=== PATIENT | male | born 1950 | race Caucasian/White ===

== ENCOUNTER 2017-04-10 13:22 | Inpatient (IN) | payer MEDICARE ==
[~2017-04-10] VITALS: Ht 182.9 cm; Wt 101.8 kg
[2017-04-10 13:22] VITALS: BP 117/62
[2017-04-10 13:45] LABS: HEMOGLOBIN 13.8 g/dL (14.1-18.0); LYMPH # 0.5 K/mm3 (0.7-4.5); LYMPH % 14.7 % (10-50)
[2017-04-10] MEDS ORDERED: INSULIN GL100 UNITS/ SC (14:07)
[2017-04-10] MEDS ORDERED: Novolog100 U/ML SC (14:08)
[2017-04-10] MEDS ORDERED: LIPITOR80 MG PO (14:10)
[2017-04-10] MEDS ORDERED: AMLO5TAB PO (14:11)
[2017-04-10] MEDS ORDERED: FAMOTIDINE 20MG20 MG PO (14:11)
[2017-04-10] MEDS ORDERED: METOPROLOL50 MG PO (14:12)
[2017-04-10] MEDS ORDERED: DEXAMETHASONE 4M4 MG PO (14:12)
[2017-04-10] MEDS ORDERED: SENEXON-S1 TAB PO (14:13)
[2017-04-10] MEDS ORDERED: FOLIC ACID 1MG T1 MG PO (14:13)
[2017-04-10] MEDS ORDERED: AUGMENTIN 875-1 EACH PO (14:13)
[2017-04-10] MEDS ORDERED: CHLORPROMAZINE25 M1 PO (14:14)
--- NOTE | 2017-04-10 14:21 | Emergency Room Report ---
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 CALL OUT R/T PATIENT INCREASED WEAKNESS AND DECREAESED MOBILITY AT HOME. PER REPORT PT HAS LUNG AND BRAIN CANCER. 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 N Clinical Suspician of Infection? N Mental Status: 1 - Regular (Normal Baseline) Sepsis Risk:Possible Sepsis Risk Have you (or family members/close friends) recently traveled outside the [place]? N If Yes, where/when: Have you had exposure to infectious disease within the past month? N TB? Other? Specify: Source patient, RN notes reviewed, family, EMS, old records Exam Limitations no limitations Comment pt with fever and change with mental status and was found to have hypoglycemia and pt on insulin for diabetes assoc with steroids as he has metastatic lung cancer - pt with cough and was seen by oncology yesterday Cardiac Chest Pain Chest pain indicative of cardiac No Timing/Duration this evening Severity moderate ALLERGIES Coded Allergies: No Known Allergies (02/22/17) Home Medications Reported Medications INSULIN GLARGINE (Lantus 3ML Solostar Pen) 32 UNITS SC DAILY INSULIN ASPART (Novolog) 16 UNITS SC AC-TID Atorvastatin Calcium (Atorvastatin) 80 MG PO QHS Amlodipine Besylate (Amlodipine) 5 MG PO DAILY Famotidine (Famotidine 20MG) 20 MG PO BID Metoprolol Tartrate (Metoprolol) 50 MG PO DAILY Dexamethasone (Dexamethasone 4MG Tab) 4 MG PO QID SENNOSIDES/DOCUSATE SODIUM (Senexon-S Tablet) 1 TAB PO BIDP PRN STOOL SOFTNER FOLIC ACID (Folic Acid) 1 MG PO DAILY Amoxicillin/Potassium Clav (Augmentin 875-125 Tablet) 1 EACH PO BID CHLORPROMAZINE HCL (Chlorpromazine Hydrochloride) 25 MG PO TID History Medical History General CAD? No Angina: No DC: No Hypertension? Yes Hyperlipidemia? No CHF? No COPD? No Asthma? No Thyroid Problems? No Hypothyroidism? No CVA? No Seizures? No Diabetes? Yes Insulin Dependent: Yes Insulin Pump: No Home FSBS? Yes GB Disease: No MRSA? No TB? No Cancer? Yes Site: LUNG AND BRAIN CA More? Yes Additional hx: HAS HAD RADIATION RADIATION FOR LUNG CA STATES IS TO START CHEMO SOON. Immunization Hx DT/Tetanus NOT SURE Surgical Hx Previous Surgery?Y DEVIATED SEPTUM CARDIAC STENT Social History Smoking Hx Smoker: Former Smoker Tobacco: No Packs/day < 1 Pack Alcohol Alcohol: Yes Drugs none Review of Systems All Other Systems Reviewed and Negative Constitutional see HPI, fever Eyes denies drainage ENT denies: ear discharge, epistaxis, throat pain. Respiratory see HPI, cough, denies shortness of breath, denies wheezing Cardiovascular denies chest pain, denies palpitations, denies syncope Gastrointestinal denies abdominal pain, denies diarrhea, denies vomiting Genitourinary denies: dysuria, frequency, hesitancy, hematuria. Musculoskeletal denies back pain, denies joint pain, denies joint swelling, denies neck pain Skin denies rash Psychiatric/Neurological denies headache, denies seizure Physical Exam Vital Signs Vital Signs Date Time Temp Pulse Resp B/P Pulse O2 O2 Flow FiO2 Ox Delivery Rate 04/10 1531 99.4 85 20 103/73 93 04/10 1453 79 20 130/74 93 04/10 1322 101.2 82 20 117/62 90 - WBC >12,000 or <4,000 or 10% bands? 2 or more SIRS Criteria Met? B/P:103/73 MAP:80 Creatinine >2.0? UA output<0.5ml/kg/hr for 2 hrs? Platelet count >100,000? Lactate >2.0mmol/1? INR >1.2 or PTT > than 60 sec? Evidence of Organ Dysfunction? Provider documented clinical suspician of infection? N Sepsis Criteria Count: 2 Sepsis Risk: Possible Sepsis Risk General Appearance no apparent distress Eye Exam - bilateral eye PERRL, bilateral eye EOMI Ear, Nose, Throat normal ENT inspection Neck supple Respiratory Status No: respiratory distress. Lung Sounds bilateral: lungs clear. 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 No Results/Orders Laboratory Tests 04/10/17 1330: Lactic Acid 1.0 04/10/17 1330: Sodium 132 L, Potassium 3.5, Chloride 98, Carbon Dioxide 25, BUN 20 H, Creatinine 1.1, Estimated Creat Clear 89, Estimated GFR (MDRD) 67, Glucose 37 *L , Calcium 9.0, Total Bilirubin 0.8, AST 43 H, ALT 64, Alkaline Phosphatase 70, Total Protein 6.7, Albumin 2.1 L, Globulin 4.6 H, Albumin/Globulin Ratio 0.5 L, WBC 3.3 L, RBC 4.44 L, Hgb 13.8 L, Hct 40.6 L, MCV 91.5, RDW 15.4, Plt Count 102 L, MPV 7.4, Gran % 81.5 H, Gran # 2.7, Lymphocytes % 14.7, Monocytes % 2.4, Eosinophils % 1.0, Basophils % 0.3, Lymphocytes # 0.5 L, Monocytes # 0.1 , Eosinophils # 0.0, Basophils # 0.0, PUBS MCHC 34.0, MCH 31.1 Current Medication Orders Sig/Iggy Start time Last Medication Dose Route Stop Time Status Admin Dextrose 50 ML ONCE ONE 04/10 1345 DC 04/10 IVP 04/10 1346 1344 Sodium Chloride 1,000 ML .Q1H1M 04/10 1345 DC 04/10 IV 04/10 1445 1344 Sodium Chloride 10 ML PRN PRN 04/10 1345 AC IV 04/11 1333 Sodium Chloride 1,000 ML .STK-MED ONE 04/10 1331 DC IV Dextrose 0 .STK-MED ONE 04/10 1330 DC .ROUTE Sodium Chloride 10 ML PRN PRN 04/10 1330 AC IV 04/11 1328 Orders Procedure Date/time Status Decision to admit 04/10 1528 Active URINALYSIS/COMPLETE 04/10 1414 Active IV SALINE LOCK 04/10 1329 Active CULTURE, BLOOD 04/10 1329 Active LACTIC ACID 04/10 1329 Complete GLUCOSE, RANDOM 04/10 1329 Complete FSBS REQUEST BY [facility] 04/10 1329 Active CBC WITH AUTO DIFF 04/10 1329 Complete CHEM 12 PROFILE 04/10 1329 Complete XRAY/CT/US XRAY/CT/US XRAY chest XR interpretation by reviewed by me Xray Results abnormal (rt upper lobe) Departure Departure Time of Disposition 1520 Disposition Still a Patient Clinical Impression Primary Impression: Febrile illness, acute Secondary Impressions: Hypoglycemia Condition STABLE Referrals Dandre COLLINS,Lillian Harper (Family) discussed with dr zayas ED Critical Care Critical Care No at [id number]
--- NOTE | 2017-04-10 15:36 | RADIOLOGY REPORT PS360 ---
CHEST-PORTABLE HISTORY: COUGH, FEVER ORDERING PHYSICIAN: Mansoor Maldonado MD PATIENT AGE: 66 years COMPARISON: None available FINDINGS: The cardiomediastinal silhouette and pulmonary vascularity are within normal limits. A prominent density is present in the right midlung in the perihilar area likely in the anterior segment of the right upper lobe and may be due to dense consolidation of pneumonia. One cannot exclude the possibility of a mass therefore, follow-up is recommended following adequate treatment for pneumonia.. No acute bony abnormalities. IMPRESSION: Dense consolidation in the right upper lobe consistent with pneumonia. Follow-up recommended as a mass cannot be excluded
[2017-04-10 16:20] VITALS: BP 129/69
[2017-04-10 16:34] VITALS: BP 120/60
--- NOTE | 2017-04-10 17:56 | HISTORY AND PHYSICAL REPORT ---
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 History is provided by his who states that he was fine 04/06/17 and then developed serious hiccups on 04/08/17 which shook the bed. He also developed a productive cough of brown sputum and seemed to be gasping for air at times. He thus went to his oncologist yesterday who started him on Augmentin. This Am he fell OOB and was not able to get back into help without the help of his grandson. He developed the fever and a productive cough. His was unable to get him to sit up to eat. She then had him brought to the ER. His states that he has completed 10 radiation treatments and plans to start chemotherapy in 1 month. At time of this exam patient is chilling but otherwise comfortable. He denies pain and SOB. Past Medical History: Medical History: CAD? Yes Angina: No FL: Yes Hypertension? Yes Hyperlipidemia? Yes CHF? No DVT? No PE? No COPD? No Asthma? No Anemia? No GERD? Yes Gastric ulcers? No GI Bleed? No Thyroid Problems? No Hypothyroidism? No CVA? No Seizures? No Diabetes? Yes Insulin Dependent: Yes Insulin Pump: No Home FSBS? Yes BPH? No GB Disease: No Arthritis? No MRSA? No TB? No Cancer? Yes Site: LUNG AND BRAIN CA More? Yes Additional hx: HAS HAD RADIATION FOR LUNG CA STATES IS TO START CHEMO SOON. Surgical history: Previous Surgery?Y DEVIATED SEPTUM CARDIAC STENT Medications: Reported Medications INSULIN GLARGINE (Lantus 3ML Solostar Pen) 32 UNITS SC DAILY INSULIN ASPART (Novolog) 16 UNITS SC AC-TID Atorvastatin Calcium (Atorvastatin) 80 MG PO QHS Amlodipine Besylate (Amlodipine) 5 MG PO DAILY Famotidine (Famotidine 20MG) 20 MG PO BID Metoprolol Tartrate (Metoprolol) 50 MG PO DAILY Dexamethasone (Dexamethasone 4MG Tab) 4 MG PO QID SENNOSIDES/DOCUSATE SODIUM (Senexon-S Tablet) 1 TAB PO BIDP PRN STOOL SOFTNER FOLIC ACID (Folic Acid) 1 MG PO DAILY Amoxicillin/Potassium Clav (Augmentin 875-125 Tablet) 1 EACH PO BID CHLORPROMAZINE HCL (Chlorpromazine Hydrochloride) 25 MG PO TID Allergies: Coded Allergies: No Known Allergies (02/22/17) Family History: Family history: Postive for: DM. Negative for: CAD. Social History: Smoking Hx Tobacco: No Smoker: Former Smoker Type: Cigarettes Packs/day: < 1 Pack Are you exposed to second hand No Alcohol: Alcohol: No Hx of Drug Use: Drug Use? No Patien't marital status is: Patient's support system is: good Review of Systems: Constitutional Positive for: chills, lethargy, weak. ENT No: nasal congestion, sore throat. Cardiovascular No: chest pain, edema, palpitations. Respiratory Positive for: pneumonia, productive cough (sputum). No: shortness of air, hemoptysis, wheezing. GI Positive for: constipation. No: abdominal pain, diarrhea, hematemeis, hematochezia, melena, nausea, vomitting. (male) No: frequency, hematuria. Neurological Positive for: confusion, gait problem, weakness. No: dizziness, headache, seizure, syncope. Musculoskeletal No: extremity pain, extremity swelling, joint pain, joint swelling. Physical Exam: Vital signs: 1ST Vital Signs Result Date Time Pulse Ox 90 04/10 1322 B/P 117/62 04/10 1322 Temp 101.2 04/10 1322 Pulse 82 04/10 1322 Resp 20 04/10 1322 O2 Delivery ROOM AIR 04/10 1620 Exam: General appearance: alert, no acute distress, face s flushed Eyes: anicteric, pupils reactive to light ENT: mucous membranes moist, nose normal, pharynx normal Neck: non-tender, no carotid bruit, supple, lymphadenopathy (absent), thyroid (normal) Cardiovascular: regular rate & rhythm Respiratory: decreased BS on the right ABD: non-distended, soft, no tenderness, bowel sounds present Extremities: no peripheral edema, no calf tenderness Neuro: alert, oriented, speech clear Lab data: Labs: Laboratory Tests 04/10/17 1630: POC Glucose 85 04/10/17 1330: Lactic Acid 1.0 04/10/17 1330: Sodium 132 L, Potassium 3.5, Chloride 98, Carbon Dioxide 25, BUN 20 H, Creatinine 1.1, Estimated Creat Clear 89, Estimated GFR (MDRD) 67, Glucose 37 *L , Calcium 9.0, Total Bilirubin 0.8, AST 43 H, ALT 64, Alkaline Phosphatase 70, Total Protein 6.7, Albumin 2.1 L, Globulin 4.6 H, Albumin/Globulin Ratio 0.5 L, WBC 3.3 L, RBC 4.44 L, Hgb 13.8 L, Hct 40.6 L, MCV 91.5, RDW 15.4, Plt Count 102 L, MPV 7.4, Gran % 81.5 H, Gran # 2.7, Lymphocytes % 14.7, Monocytes % 2.4, Eosinophils % 1.0, Basophils % 0.3, Lymphocytes # 0.5 L, Monocytes # 0.1 , Eosinophils # 0.0, Basophils # 0.0, PUBS MCHC 34.0, MCH 31.1 Microbiology 04/10 1330 BLOOD: Anaerobic Blood Culture - RECD 04/10 1330 BLOOD: Aerobic Blood Culture - RECD 04/10 1330 BLOOD: Anaerobic Blood Culture - RECD 04/10 1330 BLOOD: Aerobic Blood Culture - RECD Radiology results: Results: 04/10/17 CXR IMPRESSION: Dense consolidation in the right upper lobe consistent with pneumonia. Follow-up recommended as a mass cannot be excluded Diagnosis(es): 1. CAP (community acquired pneumonia) 2. Febrile illness, acute 3. Hypoglycemia 4. Lung cancer, primary, with metastasis from lung to other site 5. Diabetes mellitus 6. CAD (coronary artery disease) Plan: CT of head and abdomen; IV ABX; sliding scale insulin; comfort measures at 1756 at 1751
[2017-04-10 19:23] VITALS: BP 117/61
[2017-04-10 19:40] VITALS: BP 117/61
[2017-04-11 04:30] VITALS: BP 121/65
[2017-04-11 07:03] LABS: LYMPH # 0.5 K/mm3 (0.7-4.5); LYMPH % 13.4 % (10-50)
[2017-04-11 07:16] LABS: HEMOGLOBIN 12.4 g/dL (14.1-18.0)
--- NOTE | 2017-04-11 07:16 | PHARMACY CLINIC NOTE ---
See Addendum Patient Demographics Patient Demographics Admission date: 04/10/17 Date: 04/11/17 Time: 0715 Allergies Coded Allergies: No Known Allergies (02/22/17) HEIGHT- FT: 6 IN: 0.00 K.054 VTE General Information Labs: Laboratory Tests 04/10 1330 Hematology Hgb (14.1 - 18.0 g/dL) 13.8 L Hct (42.0 - 52.0 %) 40.6 L Plt Count (142 - 424 K/mm3) 102 L Disclaimer The following section includes nursing documentation that has been pulled in for pharmacy review. Patient's VTE score: 1 Patient's VTE Risk: VERY LOW RISK Clinical trial participant? No VTE prophylaxis [id number] VTE prophylaxis ordered? Yes Type of prophylaxis/treatment: ABBY at 0715
[2017-04-11 07:53] VITALS: BP 134/66
--- NOTE | 2017-04-11 08:18 | ACUTE CARE PROGRESS NOTE (QUA) ---
Progress Notes Subjective Date 04/11/17 Time 0730 Note Pt resting quietly in bed and reports he slept well overnight. He denies any pain or SOB and notes that he is feeling better than he did yesterday. He has been up to the bathroom with minimal assistance, voiding normally and BM x 1. He denies nausea or vomiting. He is NPO pending imaging this morning. Objective Findings Last VS-Temp:97.8 B/P:134/66 Pulse:81 Resp:20 SaO2:95 OXYGEN Last weight lbs:218 oz:6 K.054 Method:Bed Scales Exam General appearance: alert, awake, no acute distress Cardiovascular: regular rate & rhythm, normal peripheral pulses Respiratory: diminished breath sounds right lung alejandro with fine crackles right base and left basilar expiratory wheeze ABD: non-distended, no rebound, soft, no tenderness, no guarding, no organomegaly, no palpable mass, bowel sounds present Extremities: no peripheral edema, no calf tenderness Neuro: alert, oriented, speech clear, mildly tremulous Reviewed: medications, vital signs, lab results, radiology report, nursing notes Assessment/Plan Problem List 1. CAP (community acquired pneumonia) 2. Febrile illness, acute 3. Hypoglycemia 4. Lung cancer, primary, with metastasis from lung to other site 5. Diabetes mellitus 6. CAD (coronary artery disease) Patient condition Guarded Plan: Pt is feeling somewhat better. CT head and abd/pelvis pending. Will continue current care, await imaging. Further per Dr. Amos. This inpt stay is expected to cross 2 MNs from start of care Yes at 0817
--- NOTE | 2017-04-11 09:37 | RADIOLOGY REPORT PS360 ---
CT HEAD W/O CONTRAST HISTORY: Metastatic disease, fever, history of abnormal brain MRI, brain lesions ORDERING PHYSICIAN: Lillian Amos MD PATIENT AGE: 66 years COMPARISON: 02/22/2017 TECHNIQUE: Axial images obtained without contrast. Brain and bone windows reviewed. FINDINGS: There is mild frontal atrophy. There is a 1.9 x 1 cm low density lesion in the right cerebral peduncle and upper tucker. As previously measured 1.3 x 1.2 cm on MRI. In addition, a 1.4 x 1.3 cm cystic lesion is present in the medial aspect of the left temporal lobe. These lesions were present on 02/22/2017. There is a second temporal lobe lesion somewhat more posterior and laterally measuring 1.7 x 1.2 cm which may be slightly larger compared to the previous MRI.. The lesion within the medial aspect of left temporal lobe appears slightly smaller. No midline shift is evident. No acute intracranial hemorrhage. The smaller lesion previously demonstrated in the left temporal lobe and midbrain or not readily apparent on this unenhanced head CT. IMPRESSION: 1. Right cerebral peduncle and left temporal lobe lesions which are isodense consistent with iso-/hypodense or cystic metastasis. No midline shift or intracranial hemorrhage.. The pontine lesion and the superior temporal lesion appears slightly larger. This may be confirmed with MRI without and with contrast.
--- NOTE | 2017-04-11 09:47 | RADIOLOGY REPORT PS360 ---
CT ABD PELVIS W/O CONTRAST CLINICAL INDICATION: Brain cancer, fever of unknown origin, evaluate for possible abscess or primary carcinoma., ACUTE FEBRILE ILLNESS ORDERING PHYSICIAN: Lillian Amos MD PATIENT AGE: 66 years COMPARISON: 10-17 TECHNIQUE: Axial images obtained with sagittal and coronal reformats. PROCEDURE: Oral Contrast: None IV Contrast: None . FINDINGS: Lower thorax: There is generalized motion artifact which does somewhat obscure fine detail. On the most superior image there is a 2.4 x 1.5 cm area of consolidation or mass in the posterior aspect of the right upper lobe. Minimal atelectatic changes are present in the lung bases. Abdomen: Beam hardening artifact is present from the patient's arms. This does somewhat obscure fine detail of the liver and upper abdomen. There is a 6.9 x 5.8 cm mass within the left hepatic lobe with some some hyperdensity along the posterior aspect of the mass. The spleen is enlarged with a solid appearing mass in the posterior aspect of the spleen at 6.8 cm. Left adrenal gland is enlarged with a 4.9 cm x 3.9 cm mass. The right adrenal gland is enlarged as well measuring 3.8 x 2.2 cm. There are bilateral renal cysts measuring up to 8.8 x 8.2 cm in the lower pole on the right. This cyst does contain some calcification wall. Nonobstructing renal calculi are present on the left left parapelvic renal cyst. Pelvis: Unremarkable appendix. Fluid-filled loops of small bowel are present but not significantly distended probably related to ileus or enteritis. There is tiny umbilical hernia containing fat. No acute bony anomalies. IMPRESSION: 1. The findings are consistent with metastatic disease to the right lower lobe of the chest, left hepatic lobe of the liver, spleen, and bilateral adrenal glands. 2. Lateral renal cysts with complex cyst in the lower pole on the right. 3. Fluid-filled loops of small bowel which may be related to ileus or enteritis.
--- OUTSIDE RECORDS SUMMARY | 2017-04-11 15:12 | External Medical Summary Rpt ---
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 Name Role Phone NO, (REF) PCP Unavailable Encounter [facility] [id number] Date(s): 03/14/17 - 03/14/17 [facility] [place] [address] [place] [address]- Discharge Disposition: OP Self Care or Home Attending Physician: PARKER, FAMILY (REF), Admitting Physician: NO, FAMILY (REF), Referring Physician: NO, FAMILY (REF), Reason for Visit No data available for this section Vital Signs No data available for this section Problem List No data available for this section Allergies, Adverse Reactions, Alerts No data available for this section Medications No data available for this section Results No data available for this section Immunizations No data available for this section Procedures No data available for this section Social History No data available for this section Assessment and Plan No data available for this section Hospital Discharge Instructions No data available for this section
--- OUTSIDE RECORDS SUMMARY | 2017-04-11 15:12 | External Medical Summary Rpt ---
Author Author [facility] Organization [facility] Address Unknown Phone Unavailable Care Team Providers Care Elementary Secretary Name Role Phone NO, (REF) PCP Unavailable Encounter [facility] [id number] Date(s): 03/14/17 - 03/14/17 [facility] [address] [place] [address]- Discharge Disposition: OP Self Care or Home [...]
--- OUTSIDE RECORDS SUMMARY | 2017-04-11 15:12 | External Medical Summary Rpt ---
Demographics Preferred Language Mexican Marital Status Unknown Hinduism Affiliation Unknown Race Unknown Ethnic Group Unknown Author Author KELY Address Unknown Phone Immunization No patient found.
--- OUTSIDE RECORDS SUMMARY | 2017-04-11 15:12 | External Medical Summary Rpt ---
Demographics Preferred Language [place] Marital Status Unknown Restorationist Affiliation Unknown Race Unknown Ethnic Group Unknown Author Author KELY Address Unknown Phone Immunization No patient found.
--- OUTSIDE RECORDS SUMMARY | 2017-04-11 15:12 | External Medical Summary Rpt ---
Author Author , KELY EDGE Address Unknown Phone [email or web address] Purpose Continuity of Care Document - 02-22-2017 through 2016 Problems Code Diagnosis DOS Provider Status E16.2 HYPOGLYCEMI A, UNSPECIFIED R50.9 FEVER, UNSPECIFIED Results Labs Lab Lab Date Result Refere Interp Status Commen Order Detail nces retati t Range on Hgb A1c MFr Bld (03-15-2017 04:34) Hgb A1c 9.2 % 4.7-6.0 complet MFr 017 ed Bld 04:34 Ketones SerPl-mCnc (03-14-2017 15:56) Ketones NEG NEGATIV complet 017 NEGATIV E ed SerPl-m 15:56 E L Cnc Lipase SerPl-cCnc (03-14-2017 15:56) Lipase 100 U/L 19-63 complet SerPl-c 017 ed Cnc 15:56 Lactate Bld-sCnc (03-14-2017 15:56) Lactate 3.8 complet 017 mmol/L ed Bld-sCn 15:56 c
--- OUTSIDE RECORDS SUMMARY | 2017-04-11 15:12 | External Medical Summary Rpt ---
Author Author [facility] Organization [facility] Address Unknown Phone Unavailable Purpose Continuity of Care Document - through 2016
--- OUTSIDE RECORDS SUMMARY | 2017-04-11 15:12 | External Medical Summary Rpt ---
Author Author , KELY EDGE Address Unknown Phone [email or web address] Purpose Continuity of Care Document - 02-22-2017 [...]
--- OUTSIDE RECORDS SUMMARY | 2017-04-11 15:13 | External Medical Summary Rpt ---
Author Author [employer], [employer] Organization [employer] Address Unknown Phone Unavailable Results CBC W Auto Differential panel in Blood Observa Value Referen Units Interpr Notes Date tion ce etation Range Basophils 0 - 0.2 K/MM3 Normal No Apr 11 informati 2017 6:30 [#/volume on in AM ] in source Blood by data Automated count Basophils 0.1 - 2.0 % Normal No Apr 11 / informati 2017 6:30 leukocyte on in AM s in source Blood by data Automated count Eosinophi 0.0 - 0.4 K/mm3 Normal No Apr 11 ls informati 2017 6:30 [#/volume on in AM ] in source Blood by data Automated count Eosinophi 0.1 - % Normal No Apr 11 ls/100 12.0 informati 2017 6:30 leukocyte on in AM s in source Blood by data Automated count Granulocy 1.3 - 8.0 K/mm3 Normal No Apr 11 kd informati 2017 6:30 [#/volume on in AM ] in source Blood by data Automated count Granulocy 37.0 - % High No Apr 11 kd/100 80.0 informati 2017 6:30 leukocyte on in AM s in source Blood by data Automated count Hematocri 42.0 - % Low No Apr 11 t [Volume 52.0 informati 2017 6:30 on in AM Fraction] source of Blood data Hemoglobi 14.1 - g/dL Low No Apr 11 n 18.0 informati 2017 6:30 [Mass/vol on in AM ume] in source Blood data Lymphocyt 0.7 - 4.5 K/mm3 Low No Apr 11 es informati 2017 6:30 [#/volume on in AM ] in source Unspecifi data ed specimen by Automated count Lymphocyt 10 - 50 % Normal No Apr 11 es informati 2017 6:30 [#/volume on in AM ] in source Unspecifi data ed specimen by Automated count Erythrocy 27 - 31.2 pg Normal No Apr 11 te mean informati 2017 6:30 corpuscul on in AM ar source hemoglobi data n [Entitic mass] Erythrocy 31.8 - g/dl Normal No Apr 11 te mean 35.4 informati 2017 6:30 corpuscul on in AM ar source hemoglobi data n concentra tion [Mass/vol ume] by Automated count Erythrocy 82.2 - fl Normal No Apr 11 te mean 97.8 informati 2017 6:30 corpuscul on in AM ar volume source [Entitic data volume] by Automated count Monocytes 0.1 - 1.0 K/mm3 Normal No Apr 10 informati 2017 6:30 [#/volume on in AM ] in source Blood by data Automated count Monocytes 1.7 - 9.3 % Normal No Apr 10 /100 informati 2017 6:30 leukocyte on in AM s in source Blood by data Automated count Platelet 7.4 - fl Normal No Apr 11 mean 10.4 informati 2017 6:30 volume on in AM [Entitic source volume] data in Blood by Automated count Platelets 142 - 424 K/mm3 Low No Apr 11 informati 2017 6:30 [#/volume on in AM ] in source Blood data Erythrocy 4.6 - 6.2 M/mm3 Low No Apr 10 kd informati 2017 6:30 [#/volume on in AM ] in source Amniotic data fluid Erythrocy 11.5 - % Normal No Apr 11 te 17.5 informati 2017 6:30 distribut on in AM ion width source [Entitic data volume] by Automated count Leukocyte 4.8 - K/MM3 Low No Apr 10 s 10.8 informati 2016 6:30 [#/volume on in AM ] in source Blood data Basic metabolic panel in Blood Observa Value Referen Units Interpr Notes Date tion ce etation Range Urea 7 - 18 mg/dL High No Apr 11 nitrogen informati 2017 6:30 [Mass/vol on in AM ume] in source Serum or data Plasma Calcium 8.5 - mg/dL Normal No Apr 11 [Mass/vol 10.1 informati 2017 6:30 ume] in on in AM Serum or source Plasma data Chloride 98 - 107 mmoL/L Normal No Apr 11 [Moles/vo informati 2017 6:30 lume] in on in AM Serum or source Plasma data Carbon 21.0 - mmoL/L Normal No Apr 11 dioxide, 32.0 informati 2017 6:30 total on in AM [Moles/vo source lume] in data Serum or Plasma Creatinin 0.70 - mg/dL Normal No Apr 11 e 1.30 informati 2017 6:30 [Mass/vol on in AM ume] in source Serum or data Plasma Creatinin 50 - 200 ML/MIN Normal No Apr 11 e renal informati 2017 6:30 clearance on in AM source predicted data by Cockcroft -Gault formula Estimated >60 ML/MIN No REFERENCE Apr 11 informati RANGE: 2017 6:30 glomerula on in >60 AM r source ML/MIN/1. filtratio data 73 SQUARE n rate METERSIf (GF this patient is -A merican, then multiply theresult by 1.210. Glucose 74 - 106 mg/dL High No Apr 11 [Mass/vol informati 2016 6:30 ume] in on in AM Serum or source Plasma data Potassium 3.5 - 5.1 mmoL/L Normal No Apr 11 informati 2016 6:30 [Moles/vo on in AM lume] in source Serum or data Plasma Sodium 136 - 145 mmoL/L Low No Apr 11 [Moles/vo informati 2016 6:30 lume] in on in AM Serum or source Plasma data Glucose [Mass/volume] in Capillary blood by Glucometer Observa Value Referen Units Interpr Notes Date ti ce etation Range Glucose 70 - 110 mg/dl High No Apr 11 [Mass/vol informati 2016 6:05 ume] in on in AM Capillary source blood by data Glucomete r Glucose [Mass/volume] in Capillary blood by Glucometer Observa Value Referen Units Interpr Notes Date ti ce etation Range Glucose 70 - 110 mg/dl Normal No Apr 10 [Mass/vol informati 2016 9:27 ume] in on in PM Capillary source blood by data Glucomete r Glucose [Mass/volume] in Capillary blood by Glucometer Observa Value Referen Units Interpr Notes Date ti ce etation Range Glucose 70 - 110 mg/dl Normal No Apr 10 [Mass/vol informati 2016 4:30 ume] in on in PM Capillary source blood by data Glucomete r Glucose [Mass/volume] in Capillary blood by Glucometer Observa Value Referen Units Interpr Notes Date tion ce etation Range Glucose 70 - 110 mg/dl High No Apr 10 [Mass/vol informati 2016 1:44 ume] in on in PM Capillary source blood by data Glucomete r Comprehensive metabolic 2000 panel in Serum or Plasma Observa Value Referen Units Interpr Notes Date tion ce etation Range Albumin/G 1.1 - 1.8 No Low No Apr 10 lobulin informati informati 2016 1:30 [Mass on in on in PM ratio] in source source Serum or data data Plasma Albumin 3.4 - 5.0 gm/dL Low No Apr 10 [Mass/vol informati 2016 1:30 ume] in on in PM Serum or source Plasma data Alkaline 46 - 116 U/L Normal No Apr 10 phosphata informati 2016 1:30 se on in PM [Enzymati source c data activity/ volume] in Serum or Plasma Bilirubin 0.2 - 1.0 mg/dL Normal No Apr 10 .total informati 2016 1:30 [Mass/vol on in PM ume] in source Serum or data Plasma Urea 7 - 18 mg/dL High No Apr 10 nitrogen informati 2016 1:30 [Mass/vol on in PM ume] in source Serum or data Plasma Calcium 8.5 - mg/dL Normal No Apr 10 [Mass/vol 10.1 informati 2016 1:30 ume] in on in PM Serum or source Plasma data Chloride 98 - 107 mmoL/L Normal No Apr 10 [Moles/vo informati 2016 1:30 lume] in on in PM Serum or source Plasma data Carbon 21.0 - mmoL/L Normal No Apr 10 dioxide, 32.0 informati 2017 1:30 total on in PM [Moles/vo source lume] in data Serum or Plasma Creatinin 0.70 - mg/dL Normal No Apr 10 e 1.30 informati 2017 1:30 [Mass/vol on in PM ume] in source Serum or data Plasma Creatinin 50 - 200 ML/MIN Normal No Apr 10 e renal informati 2016 1:30 clearance on in PM source predicted data by Cockcroft -Gault formula Estimated >60 ML/MIN No REFERENCE Apr 10 informati RANGE: 2017 1:30 glomerula on in >60 PM r source ML/MIN/1. filtratio data 73 SQUARE n rate METERSIf (GF this patient is -A merican, then multiply theresult by 1.210. Globulin 1.3 - 3.2 gm/dL High No Apr 10 [Mass/vol informati 2016 1:30 ume] in on in PM Serum source data Glucose 74 - 106 mg/dL Low alert Apr 10 [Mass/vol 2016 1:30 ume] in CRITICAL PM Serum or RESULTS Plasma RESU LTS CALLED TO: EMEKA W[place] David 04/10/17 1400 [address],[place] Potassium 3.5 - 5.1 mmoL/L Normal No Apr 102016 1:30 [Moles/vo on in PM lume] in source Serum or data Plasma Sodium 136 - 145 mmoL/L Low No Apr 10 [Moles/vo informati 2016 1:30 lume] in on in PM Serum or source Plasma data Aspartate 15 - 37 U/L High No Apr 102016 1:30 aminotran on in PM sferase source [Enzymati data c activity/ volume] in Serum or Plasma Alanine 12 - 78 U/L Normal No Apr 10 aminotran 2016 1:30 sferase on in PM [Enzymati source c data activity/ volume] in Serum or Plasma Protein 6.4 - 8.2 gm/dL Normal No Apr 10 [Mass/vol ati 2016 1:30 ume] in on in PM Serum or source Plasma data Lactate [Moles/volume] in Blood Observa Value Referen Units Interpr Notes Date tion ce etation Range Lactate 0.4 - 2.0 mmol/L Normal No Apr 10 [Moles/vo ati 2016 1:30 lume] in on in PM Blood source data CBC W Auto Differential panel in Blood Observa Value Referen Units Interpr Notes Date tion ce etation Range Basophils 0 - 0.2 K/MM3 Normal No Apr 102016 1:30 [#/volume on in PM ] in source Blood by data Automated count Basophils 0.1 - 2.0 % Normal No Apr 10 informati 2016 1:30 leukocyte on in PM s in source Blood by data Automated count Eosinophi 0.0 - 0.4 K/mm3 Normal No Apr 10 ls ati 2016 1:30 [#/volume on in PM ] in source Blood by data Automated count Eosinophi 0.1 - % Normal Apr 10/100 12.0 informati 2017 1:30 leukocyte on in PM s in source Blood by data Automated count Granulocy 1.3 - 8.0 K/mm3 Normal No Apr 10 kd informati 2016 1:30 [#/volume on in PM ] in source Blood by data Automated count Granulocy 37.0 - % High No Apr 10 kd/100 80.0 informati 2016 1:30 leukocyte on in PM s in source Blood by data Automated count Hematocri 42.0 - % Low No Apr 10 t [Volume 52.0 informati 2016 1:30 on in PM Fraction] source of Blood data Hemoglobi 14.1 - g/dL Low No Apr 10 n 18.0 informati 2016 1:30 [Mass/vol on in PM ume] in source Blood data Lymphocyt 0.7 - 4.5 K/mm3 Low No Apr 10 es informati 2016 1:30 [#/volume on in PM ] in source Unspecifi data ed specimen by Automated count Lymphocyt 10 - 50 % Normal No Apr 10 es 2016 1:30 [#/volume on in PM ] in source Unspecifi data ed specimen by Automated count Erythrocy 27 - 31.2 pg Normal No Apr 10 te mean informati 2016 1:30 corpuscul on in PM ar source hemoglobi data n [Entitic mass] Erythrocy 31.8 - g/dl Normal No Apr 10 te mean 35.4 informati 2016 1:30 corpuscul on in PM ar source hemoglobi data n concentra tion [Mass/vol ume] by Automated count Erythrocy 82.2 - fl Normal No Apr 10 te mean 97.8 informati 2016 1:30 corpuscul on in PM ar volume source [Entitic data volume] by Automated count Monocytes 0.1 - 1.0 K/mm3 Normal No Apr 10 informati 2016 1:30 [#/volume on in PM ] in source Blood by data Automated count Monocytes 1.7 - 9.3 % Normal No Apr 10 / informati 2016 1:30 leukocyte on in PM s in source Blood by data Automated count Platelet 7.4 - fl Normal No Apr 10 mean 10.4 informati 2016 1:30 volume on in PM [Entitic source volume] data in Blood by Automated count Platelets 142 - 424 K/mm3 Low No Apr 10 informati 2016 1:30 [#/volume on in PM ] in source Blood data Erythrocy 4.6 - 6.2 M/mm3 Low No Apr 9 kd informati 2017 1:30 [#/volume on in PM ] in source Amniotic data fluid Erythrocy 11.5 - % No No Apr 10 te 17.5 informati informati 2017 1:30 distribut on in on in PM ion width source source [Entitic data data volume] by Automated count Leukocyte 4.8 - K/MM3 Low No Apr 9 s 10.8 informati 2017 1:30 [#/volume on in PM ] in source Blood data Urea nitrogen [Mass/volume] in Serum or Plasma Observa Value Referen Units Interpr Notes Date tion ce etation Range Urea 7 - 18 mg/dL Normal No Feb 22 nitrogen informati 2016 8:10 [Mass/vol on in AM ume] in source Serum or data Plasma CREATININE Observa Value Referen Units Interpr Notes Date tion ce etation Range Creatinin 0.70 - mg/dL Normal No Feb 22 e 1.30 informati 2016 8:10 [Mass/vol on in AM ume] in source Serum or data Plasma Estimated >60 ML/MIN No REFERENCE Feb 22 informati RANGE: 2017 8:10 glomerula on in >60 AM r source ML/MIN/1. filtratio data 73 SQUARE n rate METERSIf (GF this patient is -A merican, then multiply theresult by 1.210.
--- OUTSIDE RECORDS SUMMARY | 2017-04-11 15:44 | External Medical Summary Rpt ---
Author Author , KELY EDGE Address Unknown Phone [email or web address] Purpose Continuity of Care Document - 02-22-2017 through 2016 Problems Code Diagnosis DOS Provider Status E16.2 HYPOGLYCEMI A, UNSPECIFIED R50.9 FEVER, UNSPECIFIED Results Labs Lab Lab Date Result Refere Interp Status Commen Order Detail nces retati t Range on Hgb A1c MFr Bld (03-15-2017 04:34) Hgb A1c 9.2 % 4.7-6.0 complet MFr 017 ed Bld 04:34 Lactate Bld-sCnc (03-14-2017 15:56) Lactate 3.8 complet 017 mmol/L ed Bld-sCn 15:56 c Lipase SerPl-cCnc (03-14-2017 15:56) Lipase 100 U/L 19-63 complet SerPl-c 017 ed Cnc 15:56 Ketones SerPl-mCnc (03-14-2017 15:56) Ketones NEG NEGATIV complet 017 NEGATIV E ed SerPl-m 15:56 E L Cnc
--- OUTSIDE RECORDS SUMMARY | 2017-04-11 15:44 | External Medical Summary Rpt ---
Demographics Preferred Language Gibraltarian Marital Status Unknown Jainism Affiliation Unknown Race Unknown Ethnic Group Unknown Author Author KELY Address Unknown Phone Immunization No patient found.
--- OUTSIDE RECORDS SUMMARY | 2017-04-11 15:44 | External Medical Summary Rpt ---
Author Author , KELY EDGE Address Unknown Phone [email or web address] Purpose Continuity of Care Document - 02-22-2017 [...]
--- OUTSIDE RECORDS SUMMARY | 2017-04-11 15:44 | External Medical Summary Rpt ---
Demographics Preferred Language Israeli Marital Status Unknown Faith Affiliation Unknown Race Unknown Ethnic Group Unknown Author Author KELY Address Unknown Phone Immunization No patient found.
[2017-04-11 16:01] VITALS: BP 114/72
[2017-04-11 20:10] VITALS: BP 138/77
[2017-04-11 20:19] VITALS: BP 138/77
[2017-04-11 23:48] VITALS: BP 132/63
[2017-04-12] VITALS (8 sets, daily range): BP systolic 103–148; BP diastolic 67–85
--- NOTE | 2017-04-12 08:22 | ACUTE CARE PROGRESS NOTE (QUA) ---
See Addendum Progress Notes Subjective Date 04/12/17 Time 0745 Note Pt is sitting up on the side of the bed eating breakfast. He reports having little appetite, however, he denies nausea and notes that this is the first time he has sat up for breakfast this week. He states he is feeling better and less weak than yesterday. He denies pain or SOB. He is voiding normally and reports BM yesterday. Objective Findings Last VS-Temp:97.8 B/P:103/76 Pulse:60 Resp:24 SaO2:94 OXYGEN Last weight lbs:218 oz:6 K.054 Method:Bed Scales 04/10/17 CT Abdomen/Pelvis without contrast: 1. The findings are consistent with metastatic disease to the right lower lobe of the chest, left hepatic lobe of the liver, spleen, and bilateral adrenal glands. 2. Lateral renal cysts with complex cyst in the lower pole on the right. 3. Fluid-filled loops of small bowel which may be related to ileus or enteritis. 04/10/17 CT Head without contrast: 1. Right cerebral peduncle and left temporal lobe lesions which are isodense consistent with iso-/hypodense or cystic metastasis. No midline shift or intracranial hemorrhage.. The pontine lesion and the superior temporal lesion appears slightly larger. This may be confirmed with MRI without and with contrast. Exam General appearance: alert, awake, no acute distress Cardiovascular: regular rate & rhythm, normal peripheral pulses Respiratory: improved air movement with faint fine crackles right base ABD: non-distended, no rebound, soft, no tenderness, no guarding, no organomegaly, no palpable mass, bowel sounds present Extremities: moves all, no peripheral edema Neuro: alert, oriented, speech clear, less tremulous than yesterday Reviewed: medications, vital signs, lab results, radiology report, nursing notes Assessment/Plan Problem List 1. CAP (community acquired pneumonia) 2. Febrile illness, acute 3. Hypoglycemia 4. Lung cancer, primary, with metastasis from lung to other site 5. Diabetes mellitus 6. CAD (coronary artery disease) Patient condition Improving Plan: Will continue current care, further per Dr. Amos. This inpt stay is expected to cross 2 MNs from start of care Yes at 0822 at 0896
--- NOTE | 2017-04-12 14:29 | ACUTE CARE PROGRESS NOTE (QUA) ---
Progress Notes Subjective Date 04/12/17 Time 1422 Note Will D/C sliding scale, resume Lantus at 25 Units given now. Novolog 10 Units ac. These are lower than admission doses and will need to be adjusted. Note that Lantus dose will need to be reordered tomorrow to accomodate appropriate daily dosing. Objective Findings Last VS-Temp:97.6 B/P:119/67 Pulse:80 Resp:20 SaO2:95 OXYGEN Last weight lbs:218 oz:6 K.054 Method:Bed Scales Assessment/Plan Problem List 1. CAP (community acquired pneumonia) 2. Febrile illness, acute 3. Hypoglycemia 4. Lung cancer, primary, with metastasis from lung to other site 5. Diabetes mellitus 6. CAD (coronary artery disease) Patient condition Improving (somewhat since admission) Plan: make medication changes, Dr. Junior to see patient 04/13, 04/14 This inpt stay is expected to cross 2 MNs from start of care Yes at 0708
[2017-04-13 04:39] VITALS: BP 144/78
[2017-04-13 08:30] VITALS: BP 99/68
--- NOTE | 2017-04-13 08:40 | ACUTE CARE PROGRESS NOTE (QUA) ---
Progress Notes Subjective Date 04/13/17 Time 0839 Note Patient reports having a diminished appetite this morning. Objective Findings Laboratory Tests 04/13/17 0550: Sodium 136, Potassium 4.6, Chloride 105, Carbon Dioxide 23, BUN 20 H, Creatinine 0.7 L, Estimated Creat Clear 142, Estimated GFR (MDRD) 112, Glucose 244 H, Calcium 8.6 04/12/17 2022: POC Glucose 358 *H 04/12/17 1813: POC Glucose 340 *H 04/12/17 1155: POC Glucose 304 *H Vital Signs Date Time Temp Pulse Resp B/P Pulse O2 O2 Flow FiO2 Ox Delivery Rate 04/13 0814 98.4 75 20 144/78 92 2 04/13 0655 2 04/13 0643 2 04/13 0643 92 OXYGEN 2 04/13 0510 2 04/13 0439 98.4 75 20 144/78 92 OXYGEN / 0314 2 04/13 0105 2 04/12 2337 98.3 80 20 133/71 93 OXYGEN / 2300 2 04/12 2100 2 04/12 2035 98.7 90 20 128/75 94 2 / 1920 98.7 90 20 128/75 94 OXYGEN 08/ 1800 2 04/12 1757 2 04/12 1757 94 OXYGEN 2 04/12 1703 2 / 1600 2 04/12 1559 97.7 73 20 143/73 93 OXYGEN / 1500 2 04/12 1400 2 04/12 1300 2 04/12 1200 2 / 1200 97.6 80 20 119/67 95 OXYGEN 2 04/12 1110 2 04/12 0919 97.8 60 24 103/76 94 2 / 0911 2 I&O Past 24 Hrs-ending at 0700 08/12 0700 Intake Total 1080 Output Total Balance 1080 Last VS-Temp:98.4 B/P:144/78 Pulse:75 Resp:20 SaO2:92 OXYGEN Last weight lbs:218 oz:6 K.054 Method:Bed Scales Exam General appearance: alert, awake, no acute distress ENT: mucous membranes moist Cardiovascular: irregular rate & rhythm Respiratory: good air movement, wheezing (few), crackles (rare) ABD: normal bowel sounds, soft, tenderness (some periumbilical) Extremities: no peripheral edema Assessment/Plan Problem List 1. CAP (community acquired pneumonia) 2. Febrile illness, acute 3. Hypoglycemia 4. Lung cancer, primary, with metastasis from lung to other site 5. Diabetes mellitus 6. CAD (coronary artery disease) This inpt stay is expected to cross 2 MNs from start of care Yes Comments: Will increase Lantus dose today, add DVT prophylaxis and check EKG. at 0844
[2017-04-13 10:05] LABS: LYMPH # 0.3 K/mm3 (0.7-4.5)
[2017-04-13 10:06] LABS: HEMOGLOBIN 10.9 g/dL (14.1-18.0)
[2017-04-13 10:54] LABS: NEUTROPHILS 84 % (42-76)
[2017-04-13 11:44] VITALS: BP 126/71
[2017-04-13 16:20] VITALS: BP 136/75
[2017-04-13 19:17] VITALS: BP 117/71
[2017-04-14] VITALS (8 sets, daily range): BP systolic 118–162; BP diastolic 72–96
[2017-04-14 06:21] LABS: HEMOGLOBIN 10.7 g/dL (14.1-18.0); LYMPH # 0.3 K/mm3 (0.7-4.5); LYMPH % 10.4 % (10-50)
--- NOTE | 2017-04-14 09:51 | ACUTE CARE PROGRESS NOTE (QUA) ---
Progress Notes Subjective Date 04/14/17 Time 0949 Note Patient states he feels better today. Objective Findings Laboratory Tests 04/14/17 0545: Sodium 137, Potassium 4.3, Chloride 105, Carbon Dioxide 24, BUN 19 H, Creatinine 0.7 L, Estimated Creat Clear 142, Estimated GFR (MDRD) 112, Glucose 173 H, Calcium 8.8, WBC 2.9 L, RBC 3.50 L, Hgb 10.7 L, Hct 32.3 L, MCV 92.2 , RDW 15.3, Plt Count 106 L, MPV 7.3 L, Gran % 85.8 H, Gran # 2.5, Lymphocytes % 10.4, Monocytes % 3.0, Eosinophils % 0.4, Basophils % 0.4, Lymphocytes # 0.3 L, Monocytes # 0.1, Eosinophils # 0.0, Basophils # 0.0, PUBS MCHC 33.2, MCH 30.6 04/13/17 2022: POC Glucose 113 H 04/13/17 1648: POC Glucose 181 H 04/13/17 1154: POC Glucose 265 H Vital Signs Date Time Temp Pulse Resp B/P Pulse O2 O2 Flow FiO2 Ox Delivery Rate 04/14 0929 97.8 87 18 133/85 96 2 04/14 0900 2 04/14 0821 97.8 87 18 133/85 96 OXYGEN 04/14 0700 2 04/14 0650 2 04/14 0650 95 OXYGEN 2 04/14 0509 2 04/14 0358 98.4 78 18 132/72 92 OXYGEN 04/14 0255 2 04/14 0110 2 04/14 0002 97.8 73 18 127/73 97 OXYGEN 04/14 0000 2 04/14 0000 91 ROOM AIR 04/13 2300 2 04/13 2036 2 04/13 2032 98.6 91 18 117/71 92 2 04/13 1922 2 04/13 1922 96 OXYGEN 2 04/13 1917 98.6 91 18 117/71 92 OXYGEN 04/13 1839 2 04/13 1723 2 04/13 1620 98.3 65 18 136/75 94 OXYGEN 04/13 1454 2 04/13 1302 2 04/13 1144 99.0 75 18 126/71 95 OXYGEN 04/13 1100 2 I&O Past 24 Hrs-ending at 0700 04/14 0700 Intake Total 1511 Output Total Balance 1511 Last VS-Temp:97.8 B/P:133/85 Pulse:87 Resp:18 SaO2:96 OXYGEN Last weight lbs:218 oz:6 K.054 Method:Bed Scales Exam General appearance: alert, awake, no acute distress (sitting in chair) ENT: mucous membranes moist Cardiovascular: regular rate & rhythm Respiratory: good air movement (rare crackle present) ABD: normal bowel sounds, soft, no tenderness Assessment/Plan Problem List 1. CAP (community acquired pneumonia) 2. Febrile illness, acute 3. Hypoglycemia 4. Lung cancer, primary, with metastasis from lung to other site 5. Diabetes mellitus 6. CAD (coronary artery disease) This inpt stay is expected to cross 2 MNs from start of care Yes Comments: Improving, wean O2 today, saline lock IVF. at 0951
--- NOTE | 2017-04-14 10:33 | ACUTE CARE PROGRESS NOTE (QUA) ---
Progress Notes Subjective Date 04/14/17 Time 1032 Assessment/Plan Problem List 1. CAP (community acquired pneumonia) 2. Febrile illness, acute 3. Hypoglycemia 4. Lung cancer, primary, with metastasis from lung to other site 5. Diabetes mellitus 6. CAD (coronary artery disease) This inpt stay is expected to cross 2 MNs from start of care Yes Antibiotic Stewardship (2) Current Culture Results Microbiology 04/12 615 SPUTUM: Sputum Culture - RES 04/12 615 SPUTUM: Gram Stain - RES 04/10 1330 BLOOD: Anaerobic Blood Culture - RES 04/10 1330 BLOOD: Aerobic Blood Culture - RES Infxn that will respond? Yes Right drug,dose,and route? Yes More targeted antbx? No at 1031
[2017-04-15] VITALS (7 sets, daily range): BP systolic 126–154; BP diastolic 67–83
--- NOTE | 2017-04-15 08:23 | ACUTE CARE PROGRESS NOTE (QUA) ---
Progress Notes Subjective Date 04/15/17 Time 0816 Note biggest complaint is that his mouth is sore and cannot eat ; feels his breathing and cough are improved; denies pain; voiding QS and bowels are moving; weak with ambulation; has been sitting in the chair Objective Findings Laboratory Tests 04/15/17 0615: POC Glucose 85 04/14/17 2033: POC Glucose 131 H 04/14/17 1617: POC Glucose 156 H 04/14/17 1131: POC Glucose 157 H Microbiology 04/14 1917 SPUTUM: Sputum Culture - RES 04/14 1917 SPUTUM: Gram Stain - RES Vital Signs Date Time Temp Pulse Resp B/P Pulse O2 O2 Flow FiO2 Ox Delivery Rate 04/15 0605 1 04/15 0605 90 ROOM AIR 04/15 0503 1 04/15 0409 98.5 77 18 136/70 91 ROOM AIR 04/15 0342 88 ROOM AIR 04/15 0302 1 04/15 0115 1 04/14 2332 98.7 81 18 118/79 92 OXYGEN 04/14 2043 99.0 76 18 144/76 90 04/14 1912 99.0 76 18 144/76 90 ROOM AIR 04/14 1851 1 04/14 1846 1 04/14 1633 1 04/14 1630 98.5 80 18 162/96 90 ROOM AIR 04/14 1500 2 04/14 1300 2 04/14 1203 98.4 71 18 138/90 94 OXYGEN 04/14 1100 1.5 04/14 0929 97.8 87 18 133/85 96 2 04/14 0900 2 04/14 0821 97.8 87 18 133/85 96 OXYGEN Current Medications Oxazepam 0 .STK-MED ONE PO (DC) Oxazepam 0 .STK-MED ONE PO (DC) Oxazepam 0 .STK-MED ONE PO (DC) Enoxaparin Sodium 40 MG DAILY SC Insulin Glargine 40 UNITS DAILY SC Diagnostic Test (Pha) 1 EACH W/MEALS&HS FS Insulin Human [rDNA origin] 10 UNITS AC SC Azithromycin 500 MG Q24H IV Sodium Chloride 250 ML Amlodipine Besylate 5 MG DAILY PO Ceftriaxone Sodium 1 GM DAILY IV Sodium Chloride 50 ML Folic Acid 1 MG DAILY PO Metoprolol Tartrate 50 MG DAILY PO Sodium Chloride 10 ML PRN PRN IV Famotidine 20 MG BID PO Oxazepam 10 MG TID PO Potassium Chloride 20 MEQ BID PO Albuterol/Ipratropium 3 ML Q6H6 INH Dexamethasone 4 MG QID PO Sodium Chloride 10 ML PRN PRN IV Acetaminophen 650 MG Q4HP PRN PO Ondansetron HCl 4 MG Q6HP PRN IV Senna/Docusate Sodium 1 TAB BIDP PRN PO Sodium Chloride 1,000 ML .[id number] IV (DC) 04/14 1500 04/14 2300 04/15 0700 Intake Total 480 240 22 Output Total Balance 480 240 22 Intake, IV 22 Intake, Oral 480 240 Output, Stool Last VS-Temp:98.5 B/P:136/70 Pulse:77 Resp:18 SaO2:90 ROOM AIR Last weight lbs:218 oz:6 K.054 Method:Bed Scales > GRAM STAIN Final 04/14/17-2000 GRAM STAIN: >25 WBC /LPF 9-10 EPITHELIAL CELLS/LPF FEW BUDDING YEAST FEW HYPHAE MANY DIPHTHEROIDS MODERATE GRAM POS COCCI IN CHAINS SPUTUM CULTURE - PENDING Exam General appearance: alert, active, no acute distress ENT: OP with white clumps Cardiovascular: regular rate & rhythm Respiratory: normal exam, wheezing on inspiration ABD: non-distended, soft, no tenderness, bowel sounds present Extremities: no peripheral edema, no calf tenderness Neuro: alert, oriented, speech clear Assessment/Plan Problem List 1. CAP (community acquired pneumonia) 2. Febrile illness, acute 3. Hypoglycemia 4. Lung cancer, primary, with metastasis from lung to other site 5. Diabetes mellitus 6. CAD (coronary artery disease) 7. Oral candidiasis Patient condition Improving Plan: continue current care, Add nystatin; instructed on oral care prior to use of nystatin This inpt stay is expected to cross 2 MNs from start of care Yes Antibiotic Stewardship (2) Infxn that will respond? Yes Right drug,dose,and route? Yes More targeted antbx? No at 0822
--- NOTE | 2017-04-15 17:42 | RADIOLOGY REPORT PS360 ---
CHEST(2 VIEWS-NOT PORTABLE) HISTORY: CA with pneumonia Patient Age: 66 years: Male Ordering Physician: Lillian Amos MD TECHNIQUE: PA and lateral chest COMPARISON :Portable chest 04/10/[address] abdomen 04/10/2017 FINDINGS. The prominently dense area at the anterior RUL, measures over 8.5 cm diameter at right midlung. Again observed similar to 04/10/2017. This masslike area measures 10 cm height & AP on the lateral view. This likely reflects the tumor mass although there may be associated pneumonia or drowned lung here today; adjacent to the density. Although favor primary tumor Cannot exclude associated pneumonia here as significant contributor to this density.. . I would note that the anterior fourth rib is not well delineated and could be involved by this mass. CT the chest to be required to further delineate & evaluate for such it would be recommended if has not been performed elsewhere recently. Is a subtle second nodule or mass is seen just inferior to this measuring 3.5 cm project over the anterior fifth rib. This area measures up over to 8 cm diameter... Suspect underlying Adenopathy developing right fernando which is partially obscured by the above findings. Left lung remains fairly clear with slight coarsening of interstitial pattern towards the left lung base reflecting mild chronic changes. IMPRESSION 1. large masslike lung density at the right midlung involving the anterior aspect of the right upper lobe. Measures up to 10 cm overall on the lateral film.. Likely reflects underlying lung tumor with associated consolidation. 2. I do not visualize anterior fourth rib. Cannot exclude erosion or involvement from this mass. 3. Reviewing the patient's history a CT chest & abdomen with contrast would be recommended to further evaluate if it has not been performed recently elsewhere. 4. There is also a smaller 3.5 mm nodular density just inferior to this towards RLL 5. Underlying chronic lung changes
[2017-04-16 00:17] VITALS: BP 158/80
[2017-04-16 04:01] VITALS: BP 128/74
[2017-04-16 08:00] VITALS: BP 120/83
--- NOTE | 2017-04-16 08:42 | ACUTE CARE PROGRESS NOTE (QUA) ---
See Addendum Progress Notes Subjective Date 04/16/17 Time 0836 Note mouth is better and he has been able to eat; feeling so much better; bowels have moved well this AM; he has had a shower; breathing is better and he has not required O2. has been up in the room; does tire easily. Goes for Chemo tomorrow. Objective Findings Laboratory Tests 04/16/17 0552: POC Glucose 175 H 04/15/17 2000: POC Glucose 325 *H 04/15/17 1647: POC Glucose 206 H 04/15/17 1200: POC Glucose 112 H Vital Signs Date Time Temp Pulse Resp B/P Pulse O2 O2 Flow FiO2 Ox Delivery Rate 04/16 0800 98.0 85 22 120/83 92 ROOM AIR 04/16 0646 2 04/16 0606 2 04/16 0603 1 04/16 0603 88 OXYGEN 1 04/16 0450 1 04/16 0401 98.4 76 24 128/74 93 OXYGEN 1 04/16 0253 2 04/16 0100 2 04/16 0022 2 04/16 0017 98.1 78 158/80 93 OXYGEN 2 04/15 2339 93 OXYGEN 2 04/15 2315 2 04/15 2226 2 04/15 2100 2 04/15 2100 97.4 81 24 132/67 91 2 04/15 2014 2 04/15 2014 97.4 81 26 132/67 90 OXYGEN 2 04/15 1942 85 ROOM AIR 04/15 1849 93 OXYGEN 2 04/15 1600 98.8 73 20 154/83 86 ROOM AIR 04/15 1158 98.9 82 18 126/74 91 ROOM AIR 04/15 0945 98.5 88 20 143/82 91 Current Medications Insulin Human [rDNA origin] 0 .STK-MED ONE SC (DC) Oxazepam 0 .STK-MED ONE PO (DC) Insulin Human [rDNA origin] 0 .STK-MED ONE SC (DC) Oxazepam 0 .STK-MED ONE PO (DC) Oxazepam 0 .STK-MED ONE PO (DC) Nystatin 5 ML QID PO Enoxaparin Sodium 40 MG DAILY SC Insulin Glargine 40 UNITS DAILY SC Diagnostic Test (Pha) 1 EACH W/MEALS&HS FS Insulin Human [rDNA origin] 10 UNITS AC SC Azithromycin 500 MG Q24H IV Sodium Chloride 250 ML Amlodipine Besylate 5 MG DAILY PO Ceftriaxone Sodium 1 GM DAILY IV Sodium Chloride 50 ML Folic Acid 1 MG DAILY PO Metoprolol Tartrate 50 MG DAILY PO Sodium Chloride 10 ML PRN PRN IV Famotidine 20 MG BID PO Oxazepam 10 MG TID PO Potassium Chloride 20 MEQ BID PO Albuterol/Ipratropium 3 ML Q6H6 INH Dexamethasone 4 MG QID PO Sodium Chloride 10 ML PRN PRN IV Acetaminophen 650 MG Q4HP PRN PO Ondansetron HCl 4 MG Q6HP PRN IV Senna/Docusate Sodium 1 TAB BIDP PRN PO 04/15 1500 14 2300 0815 0700 Intake Total 480 602 10 Output Total Balance 480 602 10 Intake, IV 362 10 Intake, Oral 480 240 Output, Stool Patient 224 lb Weight Last VS-Temp:98 B/P:120/83 Pulse:85 Resp:22 SaO2:92 ROOM AIR Last weight lbs:224 oz:6 K.775 Method:Bed Scales 04/15/17 CXR IMPRESSION 1. large masslike lung density at the right midlung involving the anterior aspect of the right upper lobe. Measures up to 10 cm overall on the lateral film.. Likely reflects underlying lung tumor with associated consolidation. 2. I do not visualize anterior fourth rib. Cannot exclude erosion or involvement from this mass. 3. Reviewing the patient's history a CT chest & abdomen with contrast would be recommended to further evaluate if it has not been performed recently elsewhere. 4. There is also a smaller 3.5 mm nodular density just inferior to this towards RLL 5. Underlying chronic lung changes Exam General appearance: alert, active, no acute distress, sitting on the bedside Cardiovascular: regular rate & rhythm Respiratory: no wheezing today; few bilateral rhonchi and diminished BS ABD: non-distended, soft, no tenderness, bowel sounds present Extremities: no peripheral edema Neuro: alert, oriented, speech clear Reviewed: lab results, radiology report Assessment/Plan Problem List 1. CAP (community acquired pneumonia) 2. Febrile illness, acute 3. Hypoglycemia 4. Lung cancer, primary, with metastasis from lung to other site 5. Diabetes mellitus 6. CAD (coronary artery disease) 7. Oral candidiasis Patient condition Improved Plan: probably home today This inpt stay is expected to cross 2 MNs from start of care No Antibiotic Stewardship (2) Infxn that will respond? Yes Right drug,dose,and route? Yes More targeted antbx? No at 0842 at 0901
[2017-04-16] MEDS ORDERED: NYSTATIN 1100000 UNI PO (09:06)
[2017-04-16] MEDS ORDERED: OXAZEPAM10 MG PO (09:07)
[2017-04-16] MEDS ORDERED: K-DUR 20MEQ TA20 MEQ PO (09:09)
[2017-04-16] MEDS ORDERED: INSULIN GL100 UNITS1 SC (09:11)
[2017-04-16 10:19] VITALS: BP 120/83
--- NOTE | 2017-04-18 12:42 | DISCHARGE SUMMARY STANDARD ---
Discharge Summary (FCA2) Date of admission: 04/10/17 Date of discharge: 04/16/17 Problem List: 1. CAP (community acquired pneumonia) 2. Febrile illness, acute 3. Hypoglycemia 4. Lung cancer, primary, with metastasis from lung to other site 5. Diabetes mellitus 6. CAD (coronary artery disease) 7. 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 History was provided by his who stated that he was fine 04/06/17 and then developed serious hiccups on 04/08/17 which shook the bed. He also developed a productive cough of brown sputum and seemed to be gasping for air at times. He thus went to his oncologist who started him on Augmentin. The day of admission he fell OOB and was not able to get back into bed without the help of his grandson. He developed the fever and a productive cough. His was unable to get him to sit up to eat. She then had him brought to the ER. His states that he has completed 10 radiation treatments and plans to start chemotherapy in 1 month. At time of this exam patient was chilling but otherwise comfortable. He denied pain and SOB. Exam on admission: 1ST Vital Signs Result Date Time Pulse Ox 90 04/10 1322 B/P 117/62 04/10 1322 Temp 101.2 04/10 1322 Pulse 82 04/10 1322 Resp 20 04/10 1322 O2 Delivery ROOM AIR 04/10 1620 Exam: General appearance: alert, no acute distress, face s flushed Eyes: anicteric, pupils reactive to light ENT: mucous membranes moist, nose normal, pharynx normal Neck: non-tender, no carotid bruit, supple, lymphadenopathy (absent), thyroid (normal) Cardiovascular: regular rate & rhythm Respiratory: decreased BS on the right ABD: non-distended, soft, no tenderness, bowel sounds present Extremities: no peripheral edema, no calf tenderness Neuro: alert, oriented, speech clear Hospital Course: On admission patient was extremely weak. He was evaluated and felt safe to return to home after TX. Strength gradually improved and he was able to shower on the day of discharge. He was started on ABX and nebs. He continued on steroids. Blood sugars were monitored and insulin adjusted. His appetite gradually improved as well. He was voiding without problems and bowels did move. He had no further hiccups. He continually denied CP and SOB. He received DVT prophylaxis. He was treated for oral candidiases. He was anxious to attend appointment for chemotherapy. See lab and imaging results. On 04/16/17 he was discharged. Laboratory data this visit: 04/10/17 1630: POC Glucose 85 04/10/17 1330: Lactic Acid 1.0 04/10/17 1330: Sodium 132 L, Potassium 3.5, Chloride 98, Carbon Dioxide 25, BUN 20 H, Creatinine 1.1, Estimated Creat Clear 89, Estimated GFR (MDRD) 67, Glucose 37 *L , Calcium 9.0, Total Bilirubin 0.8, AST 43 H, ALT 64, Alkaline Phosphatase 70, Total Protein 6.7, Albumin 2.1 L, Globulin 4.6 H, Albumin/Globulin Ratio 0.5 L, WBC 3.3 L, RBC 4.44 L, Hgb 13.8 L, Hct 40.6 L, MCV 91.5, RDW 15.4, Plt Count 102 L, MPV 7.4, Gran % 81.5 H, Gran # 2.7, Lymphocytes % 14.7, Monocytes % 2.4, Eosinophils % 1.0, Basophils % 0.3, Lymphocytes # 0.5 L, Monocytes # 0.1 , Eosinophils # 0.0, Basophils # 0.0, PUBS MCHC 34.0, MCH 31.1 04/13/17 0550: Sodium 136, Potassium 4.6, Chloride 105, Carbon Dioxide 23, BUN 20 H, Creatinine 0.7 L, Estimated Creat Clear 142, Estimated GFR (MDRD) 112, Glucose 244 H, Calcium 8.6 04/12/172021: POC Glucose 358 *H 04/12/17 1813: POC Glucose 340 *H 04/12/17 1155: POC Glucose 304 *H SOURCE: SPUTUM ENTR: 04/14/17-1925 OTHR HOOPER: [facility]: COUGH ORDERED: SPUTUM CULTURE Procedure Result Verified Site > GRAM STAIN Final 04/14/17-2000 GRAM STAIN: >25 WBC /LPF 9-10 EPITHELIAL CELLS/LPF FEW BUDDING YEAST FEW HYPHAE MANY DIPHTHEROIDS MODERATE GRAM POS COCCI IN CHAINS > SPUTUM CULTURE Final 04/17/17-0758 Organism 1 YEAST YEAST: FLORECITA ALBICANS SOURCE: BLOOD ENTR: 04/10/17-1329 OTHR : JOHN: VENOUS ORDERED: BLD CUL COMMENTS: Is patient on antibiotics? N Procedure Result Verified Site > BLOOD CULTURE AEROBIC Final 04/15/17-1421 NO GROWTH AT 5 DAYS > BLOOD CULTURE ANAEROBIC Final 04/15/17-1420 NO GROWTH AT 5 DAYS Imagin04/10/17 CXR IMPRESSION: Dense consolidation in the right upper lobe consistent with pneumonia. Follow-up recommended as a mass cannot be excluded 04/10/17 CT Abdomen/Pelvis without contrast: 1. The findings are consistent with metastatic disease to the right lower lobe of the chest, left hepatic lobe of the liver, spleen, and bilateral adrenal glands. 2. Lateral renal cysts with complex cyst in the lower pole on the right. 3. Fluid-filled loops of small bowel which may be related to ileus or enteritis. 04/10/17 CT Head without contrast: 1. Right cerebral peduncle and left temporal lobe lesions which are isodense consistent with iso-/hypodense or cystic metastasis. No midline shift or intracranial hemorrhage.. The pontine lesion and the superior temporal lesion appears slightly larger. This may be confirmed with MRI without and with contrast. Repeat CXR 04/15/17 IMPRESSION 1. large masslike lung density at the right midlung involving the anterior aspect of the right upper lobe. Measures up to 10 cm overall on the lateral film.. Likely reflects underlying lung tumor with associated consolidation. 2. I do not visualize anterior fourth rib. Cannot exclude erosion or involvement from this mass. 3. Reviewing the patient's history a CT chest & abdomen with contrast would be recommended to further evaluate if it has not been performed recently elsewhere. 4. There is also a smaller 3.5 mm nodular density just inferior to this towards RLL 5. Underlying chronic lung changes Discharge medications: Stop taking the following medications: INSULIN GLARGINE (Lantus 3ML Solostar Pen) 100 UNIT/ML VIAL Subcutaneous Injection DAILY Continue taking these medications: INSULIN ASPART (Novolog) 100 UNIT/1 ML CARTRIDGE 16 UNITS Subcutaneous Injection AC-TID Atorvastatin Calcium (Atorvastatin) 80 MG TABLET 80 MILLIGRAM ORAL AT BEDTIME NIGHTLY Amlodipine Besylate (Amlodipine) 5 MG TABLET 5 MILLIGRAM ORAL DAILY Famotidine (Famotidine 20MG) 20 MG TABLET 20 MILLIGRAM ORAL TWICE A DAY Metoprolol Tartrate (Metoprolol) 50 MG TABLET 50 MILLIGRAM ORAL DAILY Dexamethasone (Dexamethasone 4MG Tab) 4 MG TABLET 4 MILLIGRAM ORAL FOUR TIMES A DAY SENNOSIDES/DOCUSATE SODIUM (Senexon-S Tablet) 1 EACH TABLET 1 TABLET ORAL TWICE A DAY NEEDED as needed for STOOL SOFTNER FOLIC ACID (Folic Acid) 1 MG TABLET 1 MILLIGRAM ORAL DAILY Amoxicillin/Potassium Clav (Augmentin 875-125 Tablet) 1 EACH TABLET 1 EACH ORAL TWICE A DAY CHLORPROMAZINE HCL (Chlorpromazine Hydrochloride) 25 MG TABLET 25 MILLIGRAM ORAL THREE TIMES A DAY Start taking the following new medications: NYSTATIN ORAL SUSP (NYSTATIN SUSP 500,000 UNITS/5ML) 5 ML/UDC IVELISSE 5 MILLILITER ORAL FOUR TIMES A DAY Qty = 100 Refills = 2 Oxazepam (Oxazepam 10MG) 10 MG CAPSULE 10 MILLIGRAM ORAL THREE TIMES A DAY Qty = 90 Refills = 1 Insulin Glargine, Recombinan (Insulin Glargine 3ML) 100 UNIT/1 ML INSULN.PEN 40 UNITS Subcutaneous Injection DAILY Days = 30 Refills = 2 POTASSIUM CHL (Potassium Chloride) 20 MEQ TAB.ER.PRT 20 Milliequivalent ORAL DAILY Qty = 30 Refills = 2 Disposition: Discharged to home in fair and stable condition. Meds as per reconciliation sheet. To continue with same diet; activity was to be limited. FU with DR. Amos in 2 weeks. at 1247
== END 2017-04-16 12:05 | disposition home or self-care (01) | DRG 194 ==
LOC: ER 13:22 → 2ND 15:36
PROVIDERS: Emergency Medicine; Family Medicine
DX: J18.9 Pneumonia, unspecified organism (principal); C34.91 Malignant neoplasm of unspecified part of right bronchus or lung; C78.89 Secondary malignant neoplasm of other digestive organs; C78.02 Secondary malignant neoplasm of left lung; B37.0 Candidal stomatitis; C78.7 Secondary malignant neoplasm of liver and intrahepatic bile duct; C79.51 Secondary malignant neoplasm of bone; C79.31 Secondary malignant neoplasm of brain; E11.649 Type 2 diabetes mellitus with hypoglycemia without coma; Z91.81 History of falling
CPT/HCPCS: J0456